=== PATIENT | male | born 1950 | race Caucasian/White ===

== ENCOUNTER → 2019-09-22 | Outpatient (CLI) | payer MEDICARE, OTHER ==
[~2019-09-22] MED LIST: ARTHROTEC EC 51 EACH PO; ASPIR 8181 MG PO; ATORVASTATIN CA40 MG PO; COMBIVENT RESPIM4 GM IH; DIGOXIN125 MCG PO; FOLIC ACID1 MG PO; IOPAMIDOL 370 MG/ML 200 ML INFUS..BTL INJ ONE; LASIX20 MG PO; LEVOTHYROXINE137 MCG PO; METOPROLOL TART50 MG PO; POTASSIUM CHLO10 ME1 PO; RAMIPRIL2.5 MG PO; SODIUM CHLORIDE 0.9% 100 ML ONE; SOTALOL80 MG PO; SYMBICORT 80-10.2 GM INH; WARFARIN SODIU2.5 MG PO
[2019-09-22 10:48] LABS: BASOPHILS # (AUTO) 0.1 (0.0-0.1); BASOPHILS % 0.9 % (0.0-1.0); EOSINOPHILS # (AUTO) 0.2 (0.0-0.4); EOSINOPHILS % 2.6 % (0.0-6.0); HEMATOCRIT 42.3 % (38.2-49.6); LYMPHOCYTES # (AUTO) 1.2 (1.0-3.2); LYMPHOCYTES % 16.7 % (18.0-39.1); MEAN CORPUSCULAR HGB CONC 33.1 g/dL (31-35); MEAN CORPUSCULAR VOLUME 93.6 fL (81-99); MONOCYTES # (AUTO) 0.7 (0.2-0.8); MONOCYTES % 9.6 % (4.4-11.3); NEUTROPHILS # (AUTO) 4.8 (2.1-6.9); NEUTROPHILS % 69.8 % (38.7-80.0); PLATELET COUNT 200 x10e3/uL (140-360); RED BLOOD COUNT 4.52 x10e6/uL (4.3-5.7); RED CELL DISTRIBUTION WIDTH 13.3 % (11.7-14.4)
[2019-09-22 11:07] LABS: ALANINE AMINOTRANSFERASE 21 IU/L (0-55); ALBUMIN/GLOBULIN RATIO 1.2 (0.8-2.0); ALKALINE PHOSPHATASE 95 IU/L (40-150); ANION GAP 11.2 mmol/L (8-16); BLOOD UREA NITROGEN 13 mg/dL (7-26); BUN/CREATININE RATIO 15 (6-25); CALCIUM 9.5 mg/dL (8.4-10.2); CARBON DIOXIDE 28 mmol/L (22-29); CHLORIDE 99 mmol/L (98-107); CHOL/HDL RATIO 3.2 (3.9-4.7); CHOLESTEROL 159 MD/DL (0-199); CREATININE, SERUM 0.89 mg/dL (0.72-1.25); EST GLOMERULAR FILTRATION RATE > 60 ML/MIN (60-); GLUCOSE 86 mg/dL (74-118); HDL CHOLESTEROL 50 MG/DL (40-60); LDL CHOLESTEROL 94 MG/DL (60-130); POTASSIUM 4.2 mmol/L (3.5-5.1); SODIUM 134 mmol/L (136-145); TRIGLYCERIDES 73 MG/DL (0-149)
[2019-09-22 11:26] LABS: THYROID STIMULATING HORMONE 0.121 uIU/mL (0.350-4.940)
--- NOTE | 2019-09-22 13:20 | Diagnostic Imaging Report ---
Exam: Abdominal and pelvic CTA Clinical history: Thromboembolism of the arteries Technique: Helical images of the abdomen and pelvis were obtained after IV contrast administration during arterial phase using the CTA protocol. DOSE REDUCTION: The exams was performed according to the departmental dose-optimization program which includes automated exposure control, adjustment of the mA and/or kV according to patient size and/or use of iterative reconstruction technique. Findings: There is no evidence of metabolic disease in the visualized abdominal and pelvic vasculatures. Diffuse atherosclerotic calcifications are noted throughout the abdominal and pelvic vessels without flow-limiting stenosis. The infrarenal abdominal aorta is mildly prominent measuring 2.7 cm in diameter. Follow-up imaging in 5 year is recommended. Mild bibasilar atelectasis is noted. There is no evidence of pleural effusion. The cardiac size is within normal limits. The liver, spleen, pancreas, adrenal glands, and left kidney are unremarkable. There are 2 hypodense lesions in the right kidney with the largest one measuring 5.3 cm in diameter most compatible with cysts. The small and large bowels are normal in caliber without evidence of obstruction. The appendix is normal in caliber. Mild retained feces are seen throughout the colon. The bladder, prostate, and seminal vesicles are unremarkable. There is no evidence of lymphadenopathy or free fluid. Degenerative disc disease are noted in the lumbar spine most pronounced at L4-5 level with loss in disc height and vacuum phenomenon. Impression: 1. No CT evidence of thromboembolic disease in the abdominal and pelvic vessels. 2. Right renal cysts as described. 3. Degenerative disc disease of the lumbar spine. 4. Mild fusiform dilation of the infrarenal abdominal aorta measuring 2.7 cm in diameter. Follow-up imaging in 5 year is recommended. Signed by: Dr. Zhao Alex MD on 09/22/2019 1:17 PM
== END ==
LOC: CT 10:17
PROVIDERS: ATTEND Internal Medicine Cardiovascular Disease
DX: I74.4 Embolism and thrombosis of arteries of extremities, unspecified (principal)
CPT/HCPCS: 36415; 74174; 80053; 80061; 84443; 85025; J7050; Q9967